=== PATIENT | female | born 1945 | race African-American/Black ===

== ENCOUNTER 2022-08-19 04:46 | Day surgery (SDC) | payer OTHER ==
[2022-08-18 08:08] VITALS: BMI 25.2
[2022-08-19 14:15] VITALS: TEMP 97.5
[2022-08-19 14:20] VITALS: BP 122/54; PULSE 63; RESP 15
== END 2022-08-19 14:20 | disposition home or self-care (01) ==
LOC: JASU-ENDO 04:46
PROVIDERS: ATTEND Internal Medicine Gastroenterology
PROC: 0DB68ZX Excision of Stomach, Via Natural or Artificial Opening Endoscopic, Diagnostic (ICD-10-PCS; 2022-08-19)
PROC: 0DJD8ZZ Inspection of Lower Intestinal Tract, Via Natural or Artificial Opening Endoscopic (ICD-10-PCS; principal; 2022-08-19 12:30)
DX: R10.84 Generalized abdominal pain (principal); I10 Essential (primary) hypertension
CPT/HCPCS: 88305-TC; 88342-TC